=== PATIENT | female | born 1995 | race Caucasian/White ===

== ENCOUNTER 2018-11-29 09:15 | Outpatient (CLI) | payer BC, MEDICAID, SELFPAY ==
[2018-11-29 09:32] LABS: Abs Immature Grans 0.01 k/cumm (0.0-0.09); Absolute Basophil Count 0.04 k/cumm (0.0-0.2); Absolute Eosinophil Count 0.13 k/cumm (0.0-0.7); Absolute Lymphocyte Count 2.09 k/cumm (1.2-3.4); Absolute Monocyte Count 0.45 k/cumm (0.11-0.7); Absolute Neutrophil Count 3.56 k/cumm (1.2-6.7); Basophils % 0.6; Eosinophils % 2.1; HCT 42.8 % (36.0-46.0); HGB 14.1 g/dL (12.0-15.5); Immature Grans % 0.2; Lymphocytes % 33.3; Mean Corp. HGB Concentration 32.9 g/dL (32.0-36.0); Mean Corpuscular Hemoglobin 29.4 pg (27.0-33.0); Mean Corpuscular Volume 89.4 fL (80-95); Mean Platelet Volume 10.1 fL (8.0-11.0); Monocytes % 7.2; Neutrophils % 56.6; Platelet Count 239 x1000/uL (130-400); RBC 4.79 m/cumm (4.00-5.20); White Blood Cell Count 6.28 k/cumm (4.4-10.8)
[2018-11-29 11:17] LABS: ALT 22 U/L (14-59); AST 16 U/L (15-37); Albumin 4.4 g/dL (3.4-5.0); Alkaline Phosphatase 53 U/L (46-116); Anion Gap 8.4 mmol/L (3-11); BUN 13 mg/dL (7-18); Bilirubin, Total 1.2 mg/dL (0.2-1.0); CO2 28.6 mmol/L (21.0-32.0); CREATININE 0.82 mg/dL (0.55-1.02); Calcium 9.2 mg/dL (8.5-10.1); Chloride 103 mmol/L (98-107); Glucose 81 mg/dL (70-100); Sodium 140 mmol/L (136-145); TSH (W/Ref FT4) 1.09 uIU/mL (0.36-3.74); Total Protein 7.5 g/dL (6.4-8.2); Vitamin B12 476 pg/mL (193-986)
== END 2018-11-29 09:35 ==
PROVIDERS: PCP Nurse Practitioner Adult Health; Visit Provider Nurse Practitioner Adult Health
DX: N92.6 Irregular menstruation, unspecified (principal); R53.83 Other fatigue; Z86.2 Personal history of diseases of the blood and blood-forming organs and certain disorders involving the immune mechanism
CPT/HCPCS: 36415; 80053; 82607; 84443; 85025

== ENCOUNTER 2019-02-20 01:56 | Outpatient (CLI) | payer BC, MEDICAID, SELFPAY ==
--- NOTE | 2019-03-12 08:14 | ZIOP_ITS ---
Date of service: 03/12/19 Time of Service: 08:14 ZIO Patch [employer] Note: This is a 2-week ZIO patch ordered for the indication of palpitations. ?The patient was in normal sinus rhythm for the majority of the recording. ?There was one episode of supraventricular tachycardia which lasted 5 beats. ?There were rare (less than 1%) supraventricular ectopic beats. ?There were rare (less than 1% isolated ventricular ectopic beats. There were no couplets or triplets present. ?There were 69 patient triggered events. These events corresponded with the lone episode of supraventricular tachycardia, sinus rhythm and supraventricular, ventricular ectopic beats. ?There were no episodes of ventricular tachycardia, no pauses greater than 3 seconds, and no high degree AV block. CC: Dictated by: JAMIN VIVAS MD Dictated:: [id number] <Electronically signed by Jamin Vivas M.D.> 03/12/19815 Transcribed Date: 03/12/19 Transcribed Time: 813By: VIRIDIANA (attached to wrong V#, cut and pasted to correct V#)
== END 2019-02-20 02:16 ==
PROVIDERS: PCP Nurse Practitioner Adult Health; Visit Provider Nurse Practitioner Adult Health
DX: R00.2 Palpitations (principal); I47.1 Supraventricular tachycardia; I49.3 Ventricular premature depolarization
CPT/HCPCS: 0296T

== ENCOUNTER 2019-03-31 10:20 | Outpatient (CLI) | payer BC, MEDICAID, SELFPAY ==
[2019-03-31 11:08] LABS: HCT 41.6 % (36.0-46.0); HGB 13.5 g/dL (12.0-15.5)
[2019-03-31 11:24] LABS: ALT 16 U/L (14-59); AST 17 U/L (15-37); Albumin 3.9 g/dL (3.4-5.0); Alkaline Phosphatase 47 U/L (46-116); Bilirubin, Direct 0.17 mg/dL (0.00-0.20); Bilirubin, Total 0.8 mg/dL (0.2-1.0); Total Protein 7.3 g/dL (6.4-8.2)
== END 2019-03-31 10:40 ==
PROVIDERS: PCP Nurse Practitioner Adult Health; Visit Provider Nurse Practitioner Adult Health
DX: D64.9 Anemia, unspecified (principal); R17 Unspecified jaundice
CPT/HCPCS: 80076; 85014; 85018